=== PATIENT | female | born 1985 | race Caucasian/White ===

== ENCOUNTER 2024-03-28 22:54 | Emergency (ER) | payer MEDICAID ==
[~2024-03-28] VITALS: Ht 170.2 cm; Wt 65.1 kg
[2024-03-28 22:58] VITALS: BP 114/76; PULSE 60; RESP 18; TEMP 98.2; O2SAT 99
[2024-03-28] MEDS: ONDANSETRON 4 MG ODT PO ONE (23:27)
== END 2024-03-29 00:35 | disposition left against medical advice (07) ==
LOC: MED 22:54
DX: R42 Dizziness and giddiness (principal); R11.2 Nausea with vomiting, unspecified; Z53.21 Procedure and treatment not carried out due to patient leaving prior to being seen by health care provider
CPT/HCPCS: Q0162